=== PATIENT | female | born 1935 | race Caucasian/White ===

== ENCOUNTER 2016-08-31 08:43 | Day surgery (SDC) | payer MEDICARE ==
--- NOTE | ~2016-08-31 | OP ---
Record Of Operation [facility] [address] [place]. [address] NAME: STEPHANE GARDNER : 39 [place]US : [place] [facility] [place] [id number] AGE: 81 ADM/REG DATE : 08/31/16 MR#: [id number] REPORT SERV DATE: 08/31/16 DICTATED BY: MARK PALMA II DATE: 08/31/16 REPORT STATUS : Draft TRANSCRIBED BY: MODGustavo DATE: 08/31/16 DATE OF PROCEDURE: 08/31/2016 PREOPERATIVE DIAGNOSES: 1. Severe right lower extremity radiculopathy. 2. L4-5 spondylolisthesis with gttn-sk-dyvexmrb stenosis. 3. 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 4. Facet changes at L3-L4. POSTOPERATIVE DIAGNOSES: 1. Severe right lower extremity radiculopathy. 2. L4-5 spondylolisthesis with gdru-ad-cuexvywf stenosis. 3. 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 4. Facet changes at L3-L4. PROCEDURES: 1. Laminectomy, L3-L4. 2. L3-L4 microdiskectomy. 3. Use of the microscope and stereotactic spinal imaging. SURGEON: Mark Palma M.D. FLUIDS: 1200 mL LR. ESTIMATED BLOOD LOSS: 50 mL. DRAINS: None. COMPLICATIONS: None. ANTIBIOTIC: Preoperatively. PREOPERATIVE HISTORY: This is a very friendly 81-year-old female with severe buttock and leg pain on the right consistent with an L3/L4 radiculopathy. We discussed the pros and cons of the surgery. We discussed the fact that fusion in many ways would be more advantageous approach because we could be more aggressive with the facet as well as more easily approach the cranial aspect of the herniation. However, the patient was very hesitant for fusion. She frankly did not want to have this, and had a history of neck fusion, but overall again was very reluctant to go with the fusion approach for her lumbar spine. I advised her that this was not unreasonable, but she was at a higher risk for instability following the decompression, and if this occurred and if she were having problems, she would need to then seriously consider the surgery. DESCRIPTION OF PROCEDURE: After informed consent was obtained, the patient was brought to the operating room at her request, and general anesthesia was achieved. She was placed in the prone position. The back was prepped and draped in a sterile fashion. The stereotactic Record Of [place] [id number] [facility] [place]. [address] NAME: STEPHANE GARDNER : 39 [place]US : [place] [facility] [place] PAT#: [id number] AGE: 81 ADM/REG DATE : 08/31/16 MR#: [id number] REPORT SERV DATE: 08/31/16 DICTATED BY: MARK PALMA II DATE: 08/31/16 REPORT STATUS : Draft TRANSCRIBED BY: KIMBERLEY DATE: 08/31/16 spinal imaging was initiated with the iliac crest pin placement on the left. Stereotactic guidance was then used throughout the case, and the incision was made on the right, and the 8 cm quadrant blades were placed. The soft tissue envelope was significant. The microscope was then brought into place. Under microscopic visualization, the laminectomy was initiated with the high-speed lisa, the Kerrison rongeurs, and the curettes. The hypertrophic ligamentum flavum was removed. The central stenosis was now alleviated. She did have an element of central stenosis again from the facet changes. This was now alleviated bilaterally. Portions of the facets were now removed, especially on the right. At this point, the L4 nerve root was identified. There was also compression upon the L3 and L4 nerve roots from the large disk fragment. At this point, the large piece of the disk was then delivered. This allowed for immediate decompression of the L3 and L4 nerve roots. Hemostasis was achieved followed by irrigation and standard closure. The patient was extubated, and transferred to the PACU in stable condition. JOSELINE/KIMBERLEY Mark Palma II, M.D. / [id number] CC: Trey Rockwell II, MD John Chrostowski, M.D.
[~2016-08-31 08:43] MED LIST: AREDS 2 PO; ASAB PO; HYZAAR 100/25 T1 TAB PO; INSNOV7030 SC; MAGOX4 PO; NEUR100 PO
[2016-08-31 09:38] LABS: HEMATOCRIT 40.6 % (36.0-48.0); HEMOGLOBIN 12.6 g/dL (12.0-16.0)
[2016-08-31 09:49] LABS: BUN (BLOOD UREA NITROGEN) 24 MG/DL (6-23); CALCIUM, SERUM 9.8 MG/DL (8.5-10.4); CHLORIDE, SERUM 106 MMOL/L (96-112); CO2 (CARBON DIOXIDE) 32 MMOL/L (24-34); CREATININE 1.46 MG/DL (0.55-1.02); GFR AFRICAN AMERICAN 39 ML/MIN (>=60); GFR NON AFRICAN AMERICAN 34 ML/MIN (>=60); GLUCOSE, SERUM 99 MG/DL (60-99); POTASSIUM, SERUM 4.9 MMOL/L (3.5-5.3); SODIUM, SERUM 142 MMOL/L (135-148)
== END 2016-08-31 18:49 | disposition home or self-care (01) ==
LOC: SDC 08:43
PROVIDERS: Orthopaedic Surgery
PROC: 01NB0ZZ Release Lumbar Nerve, Open Approach (ICD-10-PCS; principal; 2016-08-31 10:30)
DX: M51.16 Intervertebral disc disorders with radiculopathy, lumbar region (principal); M43.16 Spondylolisthesis, lumbar region; M48.06 Spinal stenosis, lumbar region; E11.9 Type 2 diabetes mellitus without complications; I10 Essential (primary) hypertension; M06.9 Rheumatoid arthritis, unspecified; M19.90 Unspecified osteoarthritis, unspecified site; E66.9 Obesity, unspecified; D64.9 Anemia, unspecified; Z79.82 Long term (current) use of aspirin; Z79.899 Other long term (current) drug therapy; Z98.49 Cataract extraction status, unspecified eye; Z90.49 Acquired absence of other specified parts of digestive tract; Z98.890 Other specified postprocedural states; Z90.710 Acquired absence of both cervix and uterus
CPT/HCPCS: 80048; 82962; 85014; 85018; 88304; 88311; 93005; A9270-GY; J0690; J1030; J2250; J2405; J2710; J3010